=== PATIENT | female | born 1995 | race Caucasian/White ===

== ENCOUNTER 2023-09-06 12:41 | Outpatient (CLI) | payer OTHER, SELFPAY ==
--- NOTE | 2023-09-06 13:00 | US_ITS ---
Patient: MARLA JOHNSON Facility:?[facility] Patient ID:?[id number] Site Patient ID:?[id number]. Site :?1993 Study:?US-OB Pelvis TV OB<14wks-09/06/2023 1:45:25 PM Ordering Physician:?Lavinia Soto Final Report: INDICATION: First trimester scan, establish dates. COMPARISON: None. TECHNIQUE: Real-time blackmon-scale imaging of the pelvis was performed. FINDINGS: Sonographic imaging demonstrates a single living intrauterine gestation. The embryo demonstrates a regular cardiac rate measuring 171 beats per minute. The embryo`s crown-rump length measurement of 2.3 cm corresponds to a gestational age of 9 weeks 0 days with a sonographic due date of 04/10/2024. There is a normal-appearing yolk sac. There are no gross abnormalities noted within the embryo at this early state of development. The gestational sac has a normal appearance. There is no evidence of a perigestational hemorrhage. The amount of fluid within the sac appears appropriate for gestational age. The cervix is closed. The myometrium appears normal. The ovaries are of normal size. Corpus luteal cyst right ovary measuring 1.7 cm. There are no suspicious fluid collections noted in the cul-de-sac. IMPRESSION: Normal first trimester OB ultrasound exam. Gestational age calculated at 9 weeks 0 days with a sonographic due date of 04/10/2024. Dictated by Bennie Armstrong MD @ 09/07/2023 8:48:36 AM Signed by:?Bennie Armstrong MD @09/07/2023 8:48:36 AM (Electronic Signature)
== END 2023-09-06 12:42 | disposition home or self-care (01) ==
LOC: US 12:43
PROVIDERS: Visit Provider Registered Nurse
DX: Z34.91 Encounter for supervision of normal pregnancy, unspecified, first trimester (principal); Z3A.09 9 weeks gestation of pregnancy
CPT/HCPCS: 76817; 86592; 86703; 86704; 86706; 86762; 86787; 86803; 86850; 86900; 86901; 87086; 87340; 87491; 87591

== ENCOUNTER 2023-11-28 09:07 | Outpatient (CLI) | payer BC, SELFPAY ==
--- OUTSIDE RECORDS SUMMARY | 2023-11-28 09:10 | XMS_ITS | Clinical Summary ---
Author Organization [facility] Address [place], [place] [address] Care Team Providers Care Apparel Embroidery Digitizer Name Role Phone Ashanti Nieves MD Primary Care Provider Allergies No known active allergies Medications Medication Sig Dispensed Refills Start Date End Date Status cholecalciferol (VITAMIN D3) 2,000 unit capsuleIndications:[place] pervision of low-risk , third trimester Take 2 Capsules (4,000 units) by mouth once daily. 100 Capsule 11/25/2020 Active vit 28/iron fum/folic (multivitamin folic acid 1 mg)Indications:Screen ing for cardiovascular, respiratory, and genitourinary diseases Take 1 Tablet by mouth once daily. 90 Tablet 3 05/26/2023 Active Hospital, Clinic, or Other Facility Administered Medication Ordered Dose Route Frequency Start Date End Date Status levonorgestrel intrauterine device (MIRENA) 1 DeviceIndications:Evaluation regarding contraception options 1 Device IU Q 5 YEARS 02/05/2021 Active Active Problems Problem Noted Date Diagnosed Date Pap smear for cervical cancer screening 05/05/20 23 Overview: 05/2023 NIL/HPV negative Pap/HPV due in 5 years Supervision of low-risk , third trimest er 10/14/2020 Rubella non-immune status 04/05/2013 Overview: Needs MMR in hospital after delivery. Resolved Problems Problem Noted Date Diagnosed Date Resolved Date Spontaneous vaginal delivery 10/20/2013 04/22/2020 UTI in 04/05/2013 08/23/2013 Overview: On initial labs, need urine culture next visit after antibiotics. Supervision of normal first 04/05/2013 04/22/2020 Overview: FOB involved Having optional screening, first trimester screen normal. AFP normal. Normal screening ultrasound. Its a boy. Wants circumcision. Procedure discussed with patient. 09/06/2013 Tdap 08/09/13 Influenza 04/09/13 Group B strep negative examination or test 04/02/2013 04/05/2013 Immunizations Name Administration Dates Next Due Hepatitis A (Peds) 11/15/2007,04/25/2007 Human Papilloma Virus Vaccine 11/15/2007, 008,04/25/2007 Influenza A (H1N1), Inactivated 06/27/2009 Influenza, IIV3 (Age 6-35 mos) 04/25/2007 Influenza, IIV3 (Age >=3 years) 04/09/2013 MMR 10/21/2013 Meningococcal Vaccine 04/25/2007 Meningococcal Vaccine (Menactra) 04/25/2007 Td, Preservative Free (age >= 7 Years) 12/16/ 6 Tdap 09/02/2020,08/09/2013 Family History Medical History Relation Name Comments Cancer Maternal Grandmother from [place] Relation Name Status Comments Maternal Grandmother Social History Tobacco Use Types Packs/Day Years Used Date Smoking Tobacco: Never Smokeless Tobacco: Never Comments:mother quit on 03/05 Alcohol Use Standard Drinks/Week Comments No 0 (1 standard drink = 0.6 oz pur e alcohol) Social Connections Answer Date Recorded Frequency of Communication with Friends and Fami ly Not on file 06/05/2021 Financial Resource Strain Answer Date R ecorded Difficulty of Paying Living Expenses Not on file 06/05/2021 Difficulty of Paying Living Expenses Not on file 06/05/2021 Sex and Gender Information Value Date Recorded Sex Assigned at Not on file Gender Identity Not on file Sexual Orientation Not on file Obstetrics History Para Term AB IAB SAB Ectopic Multiple Livin g Live Births 2 2 2 0 2 2 Date Outcome GA Total Labor Labor/2nd/3rd Weight Sex Type Anes PTL Chelsea A1 A5 Name Clin 2013 Term 39w 2d 3.5 kg (7 lb 11.4 oz) M Vag Livin g 9 9 JANES NUÑEZ Delivery Location:[facility] 2020 Term 40w 1d 12h 17m 9h 37m/2h 31m/0h 09m 3.91 kg (8 lb 10 oz) F Vag-S pont Epidur al Livin g 9 9 CAMILO MAJANO Travi s [place], MD Complications:None Delivery Location:Hospital ( [facility]) Last Filed Vital Signs Vital Sign Reading Time Taken Comments Blood Pressure 112/72 05/26/2023 8:35 AM BAR MANAGER Pulse 80 05/26/2023 8:35 AM BAR MANAGER Temperature 37 ??C (98.6 ??F) 11/25/2020 8:42 AM CDT Respiratory Rate 18 11/25/2020 8:42 AM CDT Oxygen Saturation 99% 11/24/2020 10:15 PM CDT Inhaled Oxygen Concentration - - Weight 109.3 kg (241 lb) 02/05/2021 10:57 AM CDT Height 175.3 cm (5' 9) 11/24/2020 6:09 AM CDT Body Mass Index 35.59 11/24/2020 6:09 AM CDT Plan of Treatment Health Maintenance Due Date Last Done Comments Hepatitis C screening for ag e 18-79 2011 BMI (ht and wt on same day) for age 18+ 11/17/2019 11/16/2018 Depression screening for age 12+ 11/17/2019 11/16/2018 COVID-19 vaccine series ( season) 2023 Influenza for age 9-49 02/04/2024 3, 06/27/2009 Pap test for age 21-65 05/26/2028 3, 05/26/2023, 11/16/2018 Tetanus booster 09/02/2030 09/02/2020, 08/09/2013, 12/16/2005 HIV for age 15-65 Completed 03/18/2020, 04/04/2013 Tdap Completed 09/02/2020, 08/09/2013 Pneumococcal series for age 6-64 Aged Out No longer eligible b ased on patient's age to complete this topic Procedures Procedure Name Priority Date/Time Associated Diagnosis Comments CREDIT INVESTIGATOR THIN PREP PAP SCREEN IMAGED Routine 05/26/2023 8:45 AM BAR MANAGER Cervical cancer screening ANTI HIV 1/2 Routine 03/18/2020 4:06 PM CDT Supervision of low-risk first , first trimester from Last 3 Months or Most Recently Relevant to Health Maintenance Results * CREDIT INVESTIGATOR THIN PREP PAP SCREEN IMAGED (05/26/2023 8:45 AM BAR MANAGER) Pathologist [facility] Case Report Gynecologic Cytology Report ? Case: [id number] ? Authorizing Provider: ??Giovany Lazo MD Collected: ? 05/26/2023 0845 ? Ordering Location: ? [facility] ? Received: ?05/26/2023 0919 ? Clinic ? First Screen: ?Baccam, Minie ? Specimen: ?CREDIT INVESTIGATOR ThinPrep Vial Screening, Cervical ? 06/07/2023 3:13 PM BAR MANAGER [facility] INTERPRETATION/ RESULT NEGATIVE FOR INTRAEPITHELIAL LESION OR MALIGNANCY (NIL) (none) 06/07/2023 3:13 PM BAR MANAGER [facility] IMEN ADEQUACY Satisfactory for evaluation No endocervical component seen 06/07/2023 3:13 PM BAR MANAGER [facility] HPV REQUEST HPV and PAP 06/07/2023 3:13 PM BAR MANAGER [facility] Date of LMP 05/12/2023 06/07/2023 3:13 PM BAR MANAGER [facility] Last Pap Date 11/16/18 06/07/2023 3:13 PM BAR MANAGER [facility] Last Pap Result NIL 3:13 PM BAR MANAGER [facility] Abnormal Pap or [place] Bx in last 5 years No 06/07/2023 3:13 PM BAR MANAGER [facility] Menstrual Status Regular Periods 06/07/2023 3:13 PM BAR MANAGER [facility] [place] Bx Done Today No 06/07/2023 3:13 PM BAR MANAGER [facility] Additional Information None given 06/07/2023 3:13 PM BAR MANAGER [facility] Comment: Cytology is screened at [facility] - [address], [place] [address] and [facility] - [address] [place] [address] and [facility] - [address] [place] [address] Interpreted at [facility] - [address], [place] [address] Automated Review Successful 06/07/2023 3:13 PM BAR MANAGER [facility] Comment:Specimen processed s uccessfully by automated study manager device, ThinPrep Imaging System, [employer] ANCILLARY TESTING CREDIT INVESTIGATOR HPV Ordered, Please see separate report 06/07/2023 3:13 PM BAR MANAGER [facility] Note The pap test is a screening technique, not a diagnostic procedure. It is used primarily to screen for squamous cancers and precursor lesions. Published studies have shown that it is subject to both false negative and false positive results. The pap test should not be used as the sole means to diagnose or exclude pre-malignant and malignant lesions. 06/07/2023 3:13 PM BAR MANAGER [facility] Other (Cervical) Non-Blood / Unknown 05/26/2023 8:45 AM BAR MANAGER 05/26/2023 9:19 AM BAR MANAGER Giovany Lazo MD PATHOLOGY/CYTOL OGY [facility] [address] [place] [address], * ANTI HIV 1/2 (03/18/2020 4:06 PM CDT) HIV-1/HIV-2 ANTIBODY Non-Reacti ve Non-Reacti ve 03/19/2020 4:15 PM CDT [facility] Comment:HIV-1 p24 and HIV-1/ HIV-2 Ab not detected. Blood BLOOD SPECIMEN / Unknown Venipuncture / Unknown 03/18/2020 4:06 PM CDT 03/18/2020 4:06 PM CDT Giovany Lazo MD SEND OUTS [facility] [address] [place] [address], from Last 3 Months or Most Recently Relevant to Health Maintenance Advance Directives * Full Code (Latest Code Status on File) Date Activated Date Inactivated Comments 11/24/2020 1:46 PM 11/25/2020 6:15 PM Question Answer Comments Code Status Discussion: Not Discussed * Full Code Date Activated Date Inactivated Comments 10/19/2013 7:14 PM 10/20/2013 3:46 AM * Full Code Date Activated Date Inactivated Comments 10/19/2013 3:25 PM 10/19/2013 7:14 PM Care Teams Apparel Embroidery Digitizer Relationship Specialty Start Date End Date Ashanti Nieves MD [address] [place] [address] PCP - General Family Practice 11/25/13
--- NOTE | 2023-11-28 09:15 | CRLHL7_ITS ---
For Patients: As a result of the Century Cures Act, medical imaging exams and procedure reports are released immediately into your electronic medical record. You may view this report before your referring provider. If you have questions, please contact your health care provider. OBSTETRICAL ULTRASOUND ??? ANATOMY SURVEY, 11/28/2023 INDICATION: Encounter for supervision of normal . SHANICE by LMP: 04/11/2024 GESTATIONAL AGE: 20 weeks 5 days TECHNIQUE: Transabdominal pelvic ultrasound. COMPARISON: 09/06/2023 FINDINGS: position: Breech Cervix: Visualized Length of closed cervix: 3.7 cm Placenta position: Anterior Placenta tip to internal os: 3.3 cm Umbilical cord: 3-vessel cord Placental insertion: Central Amniotic fluid: 4.9 cm SDP ANATOMY SURVEY: Observed Structures Cerebellum: 2.3 cm, 22 weeks 4 days Cisterna magna: 5.7 mm Nuchal fold: 5.4 mm Lateral ventricle: 6.4 mm CSP Midline falx Choroid plexus Spine Stomach Abdominal cord insert Urinary bladder Kidneys Diaphragm Nose/lips Orbital view Profile Upper extremities Lower extremities Hands Feet 4-chamber heart LVOT RVOT 3VV 3VTV Biometry: BPD: 4.8 cm, 20 weeks 4 days, 43% HC: 18.4 cm, 20 weeks 5 days, 42% AC: 16.0 cm, 21 weeks 1 day, 55% FL: 3.4 cm, 20 weeks 6 days, 43% FL/AC: 21.49% HC/AC ratio: 1.15 heart rate: 144 bpm age by this ultrasound: 21 weeks 1 day SHANICE by this ultrasound: 04/08/2024 Estimated weight: 385 grams (0 pounds 14 ounces) Percentile by SHANICE: 56% IMPRESSION: 1) Measurements are consistent with dates. Good interval growth since the prior exam. 2) Normal anatomic survey. NAMITA BOLANOS M.D. Body/Diagnostic Radiologist [email or web address] Transcribed: 11:[address]/Dictated by: Namita Bolanos MD @ 11/29/2023 9:01:00 AM (Electronically Signed)
== END 2023-11-28 09:08 | disposition home or self-care (01) ==
LOC: US 09:09
PROVIDERS: Visit Provider Obstetrics & Gynecology
DX: Z34.92 Encounter for supervision of normal pregnancy, unspecified, second trimester (principal); Z3A.20 20 weeks gestation of pregnancy
CPT/HCPCS: 76805

== ENCOUNTER 2024-01-23 14:34 | Outpatient (CLI) | payer BC, SELFPAY ==
--- OUTSIDE RECORDS SUMMARY | 2024-01-26 07:21 | XMS_ITS | Clinical Summary ---
Author Organization [facility] Address [place], [place] [address] Care Team Providers Care Manager Cafe Name Role Phone Ashanti Nieves MD Primary [...] s Wayne, MD Complications:None Delivery Location:Hospital ( [facility]) Last Filed Vital Signs Vital Sign Reading Time Taken Comments Blood Pressure 112/72 05/26/2023 8:35 AM SEED TRUCKER Pulse 80 05/26/2023 8:35 AM SEED TRUCKER Temperature 37 ??C (98.6 ??F) 11/25/2020 8:42 [...] Procedure Name Priority Date/Time Associated Diagnosis Comments OWNER/PHOTOGRAPHER THIN PREP PAP SCREEN IMAGED Routine 05/26/2023 8:45 AM SEED TRUCKER Cervical cancer screening ANTI HIV 1/2 Routine 03/18/2020 4:06 PM CDT Supervision of low-risk first , first trimester from Last 3 Months or Most Recently Relevant to Health Maintenance Results * OWNER/PHOTOGRAPHER THIN PREP PAP SCREEN IMAGED (05/26/2023 8:45 AM SEED TRUCKER) Pathologist [facility] Case Report Gynecologic Cytology Report ? Case: [id number] ? Authorizing Provider: ??Giovany Lazo MD Collected: ? 05/26/2023 0845 ? Ordering Location: ? [facility] ? Received: ?05/26/2023 0919 ? Clinic ? First Screen: ?Baccam, Minie ? Specimen: ?OWNER/PHOTOGRAPHER ThinPrep Vial Screening, Cervical ? 06/07/2023 3:13 PM SEED TRUCKER [facility] INTERPRETATION/ RESULT NEGATIVE FOR INTRAEPITHELIAL LESION OR MALIGNANCY (NIL) (none) 06/07/2023 3:13 PM SEED TRUCKER [facility] IMEN ADEQUACY Satisfactory for evaluation No endocervical component seen 06/07/2023 3:13 PM SEED TRUCKER [facility] HPV REQUEST HPV and PAP 06/07/2023 3:13 PM SEED TRUCKER [facility] Date of LMP 05/12/2023 06/07/2023 3:13 PM SEED TRUCKER [facility] Last Pap Date 11/16/18 06/07/2023 3:13 PM SEED TRUCKER [facility] Last Pap Result NIL 3:13 PM SEED TRUCKER [facility] Abnormal Pap or [place] Bx in last 5 years No 06/07/2023 3:13 PM SEED TRUCKER [facility] Menstrual Status Regular Periods 06/07/2023 3:13 PM SEED TRUCKER [facility] [place] Bx Done Today No 06/07/2023 3:13 PM SEED TRUCKER [facility] Additional Information None given 06/07/2023 3:13 PM SEED TRUCKER [facility] Comment: Cytology is screened at [facility] - [address], [place] [address] and [facility] - [address] [place] [address] and [facility] - [address] [place] [address] Interpreted at [facility] - [address], [place] [address] Automated Review Successful 06/07/2023 3:13 PM SEED TRUCKER [facility] Comment:Specimen processed s uccessfully by automated customer development manager device, ThinPrep Imaging System, [employer] ANCILLARY TESTING OWNER/PHOTOGRAPHER HPV Ordered, Please see separate report 06/07/2023 3:13 PM SEED TRUCKER [facility] Note The [...] pre-malignant and malignant lesions. 06/07/2023 3:13 PM SEED TRUCKER [facility] Other (Cervical) Non-Blood / Unknown 05/26/2023 8:45 AM SEED TRUCKER 05/26/2023 9:19 AM SEED TRUCKER Giovany Lazo MD PATHOLOGY/CYTOL OGY [facility] [address] [place] [address], * ANTI HIV 1/2 (03/18/2020 4:06 PM CDT) HIV-1/HIV-2 ANTIBODY Non-Reacti ve Non-Reacti ve 03/19/2020 4:15 PM CDT [facility] Comment:HIV-1 p24 and HIV-1/ HIV-2 Ab not detected. Blood BLOOD SPECIMEN / Unknown Venipuncture / Unknown 03/18/2020 4:06 PM CDT 03/18/2020 4:06 PM CDT Giovany Lazo MD SEND OUTS [facility] [address] [place] [address], from Last 3 Months or Most Recently [...] 3:25 PM 10/19/2013 7:14 PM Care Teams Manager Cafe Relationship Specialty Start Date End Date Ashanti Nieves MD [address] [place] [address] PCP - General Family Practice 11/25/13
== END 2024-01-23 14:35 | disposition home or self-care (01) ==
LOC: NFLDREF 01-26 07:18
PROVIDERS: Visit Provider Obstetrics & Gynecology
DX: Z34.93 Encounter for supervision of normal pregnancy, unspecified, third trimester (principal); Z3A.28 28 weeks gestation of pregnancy
CPT/HCPCS: 86592

== ENCOUNTER 2024-03-14 15:05 | Outpatient (CLI) | payer BC, SELFPAY | END 2024-03-14 15:06 | disposition home or self-care (01) | LOC: NFLDREF 03-15 13:29 | PROVIDERS: Visit Provider Obstetrics & Gynecology | DX: Z34.93 Encounter for supervision of normal pregnancy, unspecified, third trimester (principal); Z3A.36 36 weeks gestation of pregnancy | CPT/HCPCS: 87081; 87653 ==

== ENCOUNTER 2024-03-21 13:44 | Outpatient (CLI) | payer BC, SELFPAY ==
--- NOTE | 2024-03-21 14:00 | CRLHL7_ITS ---
For Patients: As a result of the Century Cures Act, medical imaging exams and procedure reports are released immediately into your electronic medical record. You may view this report before your referring provider. If you have questions, please contact your health care provider. INDICATION: Obesity TECHNIQUE: Real time blackmon scale imaging of the fetus was performed. COMPARISON: 11/28/2023 FINDINGS: Sonographic imaging demonstrates a single living intrauterine gestation. Fetus demonstrates a regular cardiac rate of 165 beats per minute. Fetus has a vertex position. The placenta lies right anterior. Amniotic fluid volume appears normal and there is a single deepest pocket of 5.3 cm. The estimated weight is 2998gm which lies at the 47th %. On the prior OB ultrasound dated 11/28/2023 the estimated weight was at the 56th percentile. BPD 57th percentile. HC 46th percentile. AC 46th percentile. FL 40th percentile. The fetus was active and demonstrated normal breathing movements. There was normal flexion and extension of the trunk and extremities. IMPRESSION: Normal biophysical profile score 8/8. Sonographic gestational age 37 weeks 0 days and a sonographic due date of 04/11/2024. Good correlation with dates. Normal interval growth. Estimated weight is 47th percentile. Abdominal circumference 46th percentile. Dictated by Bennie Armstrong MD @ 03/25/2024 4:14:39 PM (Electronically Signed)
== END 2024-03-21 13:45 | disposition home or self-care (01) ==
LOC: US 13:44
PROVIDERS: Visit Provider Obstetrics & Gynecology
DX: O99.213 Obesity complicating pregnancy, third trimester (principal); Z3A.37 37 weeks gestation of pregnancy
CPT/HCPCS: 76816; 76819

== ENCOUNTER 2024-03-28 14:57 | Outpatient (CLI) | payer BC, SELFPAY ==
[2024-03-28] VITALS (10 sets, daily range): BP systolic 126–136; BP diastolic 60–80; PULSE 79–96; RESP 16; TEMP 36.4; O2SAT 97–98
--- OUTSIDE RECORDS SUMMARY | 2024-03-28 14:59 | XMS_ITS | Clinical Summary ---
Author Organization [facility] Address [place], [place] [address] Care Team Providers Care Sap Hana Architect Name Role Phone Ashanti Nieves MD Primary [...] smear for cervical cancer screening 05/05/20 23 Overview (06/08/2023): 05/2023 NIL/HPV negative Pap/HPV due in 5 years Supervision of low-risk , third trimest er 10/14/2020 Rubella non-immune status 04/05/2013 Overview (04/05/2013): Needs MMR in hospital after delivery. Resolved Problems Problem Noted Date Diagnosed Date Resolved Date Spontaneous vaginal delivery 10/20/2013 04/22/2020 UTI in 04/05/2013 08/23/2013 Overview (04/05/2013): On initial labs, need urine culture next visit after antibiotics. Supervision of normal first 04/05/2013 04/22/2020 Overview (10/11/2013): FOB involved Having optional screening, first trimester [...] Td, Preservative Free (age >= 7 Years) 6 Tdap 09/02/2020,08/09/2013 Family History Medical History [...] oz) M Vag Livin g 9 9 JOAQUIN JANES Delivery Location:[facility] 2020 Term 40w 1d 12h 17m 9h 37m/2h 31m/0h 09m 3.91 kg (8 lb 10 oz) F Vag-S pont Epidur al Livin g 9 9 CAMILO MAJANO Travi s Wayne, MD Complications:None Delivery Location:Hospital ( [facility]) Last Filed Vital Signs Vital Sign Reading Time Taken Comments Blood Pressure 112/72 05/26/2023 8:35 AM MANAGER IMAGE Pulse 80 05/26/2023 8:35 AM MANAGER IMAGE Temperature 37 ??C (98.6 ??F) 11/25/2020 8:42 [...] 11/17/2019 11/16/2018 COVID-19 vaccine series ( season) 2024 Influenza for age 9-49 02/04/2024 3, 06/27/2009 Pap test for age 21-65 05/26/2028 , 05/26/2023, 11/16/2018 Tetanus booster 09/02/2030 09/02/2020, 08/09/2013, 12/16/2005 HIV for age 15-65 Completed 03/18/2020, 04/04/2013 Tdap Completed 09/02/2020, 08/09/2013 Pneumococcal series for age 6-64 Aged Out No longer eligible b ased on patient's age to complete this topic Procedures Procedure Name Priority Date/Time Associated Diagnosis Comments CLINICAL TRIAL EDUCATOR THIN PREP PAP SCREEN IMAGED Routine 05/26/2023 8:45 AM MANAGER IMAGE Cervical cancer screening ANTI HIV 1/2 Routine 03/18/2020 4:06 PM CDT Supervision of low-risk first , first trimester from Last 3 Months or Most Recently Relevant to Health Maintenance Results * CLINICAL TRIAL EDUCATOR THIN PREP PAP SCREEN IMAGED (05/26/2023 8:45 AM MANAGER IMAGE) Case Report Gynecologic Cytology Report ? Case: [id number] ? Authorizing Provider: ??Giovany Lazo MD Collected: ? 05/26/2023 0845 ? [facility] ? Received: ?05/26/2023 0919 ? Clinic ? First Screen: ?Baccam, Minie ? Specimen: ?CLINICAL TRIAL EDUCATOR ThinPrep Vial Screening, Cervical ? 06/07/2023 3:13 PM MANAGER IMAGE [facility] INTERPRETATION/ RESULT NEGATIVE FOR INTRAEPITHELIAL LESION OR MALIGNANCY (NIL) (none) 06/07/2023 3:13 PM MANAGER IMAGE [facility] IMEN ADEQUACY Satisfactory for evaluation No endocervical component seen 06/07/2023 3:13 PM MANAGER IMAGE [facility] HPV REQUEST HPV and PAP 06/07/2023 3:13 PM MANAGER IMAGE [facility] Date of LMP 05/12/2023 06/07/2023 3:13 PM MANAGER IMAGE [facility] Last Pap Date 11/16/18 06/07/2023 3:13 PM MANAGER IMAGE [facility] Last Pap Result NIL 3:13 PM MANAGER IMAGE [facility] Abnormal Pap or [place] Bx in last 5 years No 06/07/2023 3:13 PM MANAGER IMAGE [facility] Menstrual Status Regular Periods 06/07/2023 3:13 PM MANAGER IMAGE [facility] [place] Bx Done Today No 06/07/2023 3:13 PM MANAGER IMAGE [facility] Additional Information None given 06/07/2023 3:13 PM MANAGER IMAGE [facility] Comment: Cytology is screened at [facility] - [address], [place] [address] and [facility] - [address], [place] [address] and [facility] - [address] [place] [address] Interpreted at [facility] - [address], [place] [address] Automated Review Successful 06/07/2023 3:13 PM MANAGER IMAGE [facility] Comment:Specimen processed s uccessfully by automated scoring machine operator device, ThinPrep Imaging System, [employer] ANCILLARY TESTING CLINICAL TRIAL EDUCATOR HPV Ordered, Please see separate report 06/07/2023 3:13 PM MANAGER IMAGE [facility] [employer] [facility] Note The pap test [...] pre-malignant and malignant lesions. 06/07/2023 3:13 PM MANAGER IMAGE [facility] [employer] [facility] Other (Cervical) Non-Blood / Unknown 05/26/2023 8:45 AM MANAGER IMAGE 05/26/2023 9:19 AM MANAGER IMAGE Giovany Lazo MD PATHOLOGY/CYTOL OGY [facility] [address] [place] [address], [place] * ANTI HIV 1/2 (03/18/2020 4:06 PM CDT) HIV-1/HIV-2 ANTIBODY Non-Reacti ve Non-Reacti ve 03/19/2020 4:15 PM CDT [facility] [employer] [facility] Comment:HIV-1 p24 and HIV-1/ HIV-2 Ab not detected. Blood BLOOD SPECIMEN / Unknown Venipuncture / Unknown 03/18/2020 4:06 PM CDT 03/18/2020 4:06 PM CDT Giovany Lazo MD SEND OUTS [facility] [address] [place] [address], [place] from Last 3 Months or Most Recently [...] 3:25 PM 10/19/2013 7:14 PM Care Teams Sap Hana Architect Relationship Specialty Start Date End Date Ashanti Nieves MD [address] [place] [address] PCP - General Family Practice 11/25/13
[2024-03-28 17:14] LABS: Hematocrit 38.2 % (33.0-51.0); Hemoglobin* 12.6 gm/dL (12.0-16.0); Mean Corpuscular HGB Conc 33 gm/dL (32-36); Mean Corpuscular Hemoglobin 29 pg (26-34); Mean Corpuscular Volume 88 fL (80-100); Platelet Count* 271 K/uL (140-440); Red Blood Count 4.34 m/uL (4.00-5.20); White Blood Count* 9.04 K/uL (4.50-11.00)
[2024-03-28 17:55] LABS: Alanine Aminotransferase* 11 U/L (4-35); Aspartate Amino Transferase* 19 U/L (12-35); Blood Urea Nitrogen* 8 mg/dL (5-24); Creatinine* 0.5 mg/dL (0.5-1.5); Estimated Glomerular Filt Rate 129 ml/min
[2024-03-28 18:22] LABS: Slide Review Reflex No
--- NOTE | 2024-03-28 18:36 | PC.OBNST ---
NST Note NST Note Start: 03/28/24 14:59 Freq: ONCE Status: Active Protocol: Document 03/28/24 18:34 JOSEFA (Rec: 03/28/24 18:36 JOSEFA Desktop) NST Note 5 Para (# of births) 2 EDC 04/11/24 Gestational Age In Weeks & Days 38 Weeks & 0 Days Patient Presented with Complaint(s) of Other Other Complaints Pt. was seen in clinic and had a BP of 146/84, Pt. has never had an elevated BP. Pt. sent to Center for serial BP' s and EFM. Reactive Yes Appropriate for Gestational Age Yes BLANCA [place] Date 03/28/24 Reactive Yes Appropriate for Gestational Age Yes BLANCA Cameron RN Date 03/28/24 OB NST charge Yes Complete NST Note via Write Note Yes The provider's electronic signature indicates the NST is reactive/appropriate for gestational age. *Note to provider: If an addendum is required, open the patient's chart and click on the note under the Nurse/Allied Health tab.
[2024-03-28 19:16] LABS: Total Protein Urine 6 mg/dL
[2024-03-28 19:17] LABS: Creatinine Urine 94.3 mg/dL; Protein Creatinine Ratio Urine 0.06 (0-0.19)
== END 2024-03-28 18:30 | disposition home or self-care (01) ==
LOC: OB OUT 14:58 → OB 14:59
PROVIDERS: Visit Provider Obstetrics & Gynecology
DX: Z34.93 Encounter for supervision of normal pregnancy, unspecified, third trimester (principal); Z3A.38 38 weeks gestation of pregnancy
CPT/HCPCS: 36415; 59025; 76819; 82565; 82570; 84156; 84450; 84460; 84520; 85027; G0463

== ENCOUNTER 2024-04-03 07:53 | Inpatient (IN) | payer BC, MEDICAID, SELFPAY ==
[2024-04-03] VITALS (55 sets, daily range): BP systolic 64–142; BP diastolic 32–86; PULSE 61–131; RESP 16–18; TEMP 36.4–37.3; O2SAT 81–99; BMI 41.4
[2024-04-03] MEDS: ACETAMINOPHEN 500 MG TABLET 1000 MG PO (08:00)
[2024-04-03 08:30] LABS: Hematocrit 37.2 % (33.0-51.0); Hemoglobin* 12.1 gm/dL (12.0-16.0); Mean Corpuscular HGB Conc 33 gm/dL (32-36); Mean Corpuscular Hemoglobin 29 pg (26-34); Mean Corpuscular Volume 89 fL (80-100); Platelet Count* 236 K/uL (140-440); White Blood Count* 8.22 K/uL (4.50-11.00)
[2024-04-03 08:32] LABS: Slide Review Reflex No
[2024-04-03 08:48] LABS: Aspartate Amino Transferase* 16 U/L (12-35); Blood Urea Nitrogen* 7 mg/dL (5-24); Creatinine* 0.5 mg/dL (0.5-1.5); Est. Creatinine Clearance* 170.37; Estimated Glomerular Filt Rate 129 ml/min
[2024-04-03 08:56] LABS: Alanine Aminotransferase* 11 U/L (4-35)
--- NOTE | 2024-04-03 09:06 | P.LDBA_ITS ---
Subjective History of Present Illness Narrative: Patient is being admitted to Labor and Delivery for IOL due to diagnosis of GHTN made today. She is a 29 year old at 38 6/7 weeks gestation. Her full history and physical was dictated by Dr. Cole on 03/21/24. Please see this for details. Patient had one elevated BP in clinic last week, she was sent to L&D for further monitoring and BPs where normal, since this had been the first elevated BP in she was sent home with instructions to start monitoring BPs and instructions to come back if elevated BPs noted at home. Monitoring so far had been normal including a clinic visit yesterday. Today patient called unit with concerns of elevated BP reading at home and she was asked to come in for evaluation. Today patient with mild range high blood pressure meeting criteria for GHTN and recommendation was given to start IOL today. Did complain of a headache this morning she took ibuprofen at home, otherwise no other CLEARANCE REPRESENTATIVE irritability symptoms. Specific Issues/Plans 1. Elevated BMI: BMI 36.2 - HgbA1c 5.1 - Consider weekly BPPs/NSTs at 37 weeks. Scheduling form completed 02/21/24 Rubella non immune. Recommend PP vaccine. Hep B non immune. Is not high risk. Will consider PP vaccine. US on 03/21/24 at 37 weeks: EFW 47%tile, AC 46%tile. SDP 5.3 cm. Covid: Recommended, declines. TDAP: 02/06/24 RSV: 02/20/24 GBS: 03/14/2024 H&P: Dr. Cole on 03/21/24 OB - Problem Based A/P Additional Plan (1) Gestational hypertension: Status: Acute Plan 1. Start IOL, will offer vaginal Cytotec and plan to evaluate cervix after at least 2 doses to evaluate if we could start Oxytocin. 2. Continuous monitoring. 3. HELLP labs, if normal will not repeat unless CLEARANCE REPRESENTATIVE irritability sx or severely elevated BPs. 4. Candidate for analgesia of choice. OB Exam Physical Exam Vital signs: Temp Pulse Resp BP Pulse Ox 97.5 F L 82 18 136/72 97 04/03/24 07:05 04/03/24 09:05 04/03/24 07:05 04/03/24 09:05 04/03/24 07:02 Detailed Labor and Delivery Exam Patient Gravid: Yes Comments: Patient checked in clinic yesterday and cervix unfavorable, no uterine contraction changes, will defer cervical exam right now. Fetus (Single) Amniotic Membrane Status: intact Heart Rate Baseline: 130 Monitor Accelerations: Present Monitor Decelerations: None Half-Way Variability: Moderate (6-25)
[2024-04-03] MEDS: miSOPROStoL 25 MCG/0.25 TABLET VAGINAL ×2 (09:29→12:36)
[2024-04-03 10:00] LABS: Total Protein Urine 10 mg/dL
[2024-04-03 10:01] LABS: Creatinine Urine 57.4 mg/dL; Protein Creatinine Ratio Urine 0.17 (0-0.19)
[2024-04-03] MEDS: AMPICILLIN 2 GM in 0.9 % SODIUM CHLORIDE Mini-bag 100 ML IVPB (15:43)
[2024-04-03] MEDS: LACTATED RINGERS 1000 ML 1,000 ML 125 ML IV (15:45)
[2024-04-03] MEDS: AMPICILLIN 1 GM in 0.9 % SODIUM CHLORIDE Mini-bag 100 ML IVPB (19:43)
[2024-04-03] MEDS: OXYTOCIN 30 unit/500 ML in NS 30 UNIT/500 ML BAG IVPB (20:33)
[2024-04-03] MEDS: BUPIVACAINE 0.25% PF 10 ML 10 ML ML EPIDURAL (21:10)
[2024-04-03] MEDS: ROPIVACAINE 0.2% 100 ml 100 ML 12 MG EPIDURAL (21:14)
--- NOTE | 2024-04-03 21:22 | P.ANBPRC_ITS ---
[facility] Social History What is your current living situation?: I presently have a place to live Problems where you live: no known problems In the past 12 months, utilities in danger of being shut off: declined to answer In past 12 months, lack of transportation kept you from medical appts, meetings, work, or getting things needed for daily living: no In the past 12 mos, have been you worried that your food would run out before you had money to buy more?: never true In the past 12 mos, the food you bought just didn't last and you didn't have money to buy more?: never true Smoking Status: Never smoker How often does anyone, including family, friends and others, physically hurt you : never How often does anyone, including family, friends and others, insult or talk down to you: never How often does anyone, including family, friends and others, threaten you with harm: never How often does anyone, including family, friends and others, scream or curse at you: never Little interest or pleasure in doing things: not at all Feeling down, depressed, or hopeless: not at all Meds Home Medications and Allergies Home Medications ?Medication ?Instructions ?Recorded ?Confirmed ?Type docosahexaenoic acid 200 mg 200 mg PO DAILY 09/06/23 04/03/24 History capsule ( DHA) Allergies Allergy/AdvReac Type Severity Reaction Status Date / Time No Known Drug Allergies Allergy Verified 04/02/24 13:07 Results Labs Labs: Laboratory Results - last 24 hr 04/03/24 04/03/24 08:14 09:32 WBC 8.22 RBC 4.20 Hgb 12.1 Hct 37.2 MCV 89 MCH 29 MCHC 33 Plt Count 236 BUN 7 Creatinine 0.5 Estimated Creat Clear 170.37 Estimated GFR 129 AST 16 ALT 11 Urine Creatinine 57.4 Protein/Creatinin Ratio 0.17 Urine Total Protein 10 Blood Type O Positive Antibody Screen NEGATIVE Vital Signs Vital Signs: Last Vital Signs Temp 98.6 F 04/03/24 20:02 Pulse 90 04/03/24 21:19 Resp 16 04/03/24 20:02 BP 127/68 04/03/24 21:19 Pulse Ox 97 04/03/24 20:55 Weight: 127.233 kg Height: 175.26 cm Anesthesia Procedures Epidural Insertion Patient Location: OB Start Time: 20:30 Stop Time: 21:10 Start Date: 04/03/24 Stop Date: 04/03/24 Reason for Block: procedure for pain Patient Position: sitting Performed By: Bentley Maldonado Preanesthetic Checklist: IV checked, risks and benefits discussed, monitors and equipment checked, pre-op evaluation, timeout performed and anesthesia consent Prep: chlorhexidine gluconate Monitoring: blood pressure monitoring, continuous pulse oximetry and heart rate Approach: midline Vertebral Space: lumbar (1-5) Epidural Technique: SHAHEED saline Needle Type: Tuohy needle Injection Technique: continuous catheter Needle gauge: 17 Needle Length (cm): 10 cm Needle Insertion Depth (cm): 9 Catheter Gauge: 19 Catheter Type: multi-orifice Catheter at skin depth (cm): 15 Test Dose Result: negative and lidocaine 1.5% with epinephrine 1 to 200,000
[2024-04-03] MEDS: PHENYLEPHRINE 100 MCG/ML SYRINGE IVP ×2 (22:01→22:09)
[2024-04-03] MEDS: LACTATED RINGERS 1000 ML 1,000 ML 1200 ML IV (22:12)
[2024-04-03] MEDS: ePHEDrine sulfate 5 MG/ML inj 10 MG IVP (22:19)
--- NOTE | 2024-04-03 23:06 | W.PM.OBVAGDE ---
OB Procedure Vag Delivery Mother Details Mother Details: The patient is a 29 year-old, 5, Para 3, admitted on 04/03/24 at 38 6/7 Days gestation for IOL due to GHTN diagnosis. : 5 Para: 2 Weeks Gestation: 38.6 Admission Date: 04/03/24 Additional Details Amniotic Membrane Status: AROM Amniotic Membrane Rupture Date: 04/03/24 Amniotic Membrane Rupture Time: 19:43 Amniotic Membrane Fluid Description: Clear Analgesia/Anesthesia Type: Epidural Waterbirth: No Pitcoin: Yes Intrapartal Events: Labor Induction Induction Method: per misoprostol protocol and per pitocin protocol Delivery augmentation: rupture of membranes Labor Onset: 19:45 Complete: 22:38 Pushin:42 Heart: heart tones during second stage were category 2. Patient's blood pressures decreased and at about 10pm NST started to exhibit variable decelerations, blood pressures treated but decelerations became more persistent even after position changes, d/c oxytocin and position changes. I was called in to evaluate and cervical check found patient an anterior rim reducible with contractions and station already +1,+2. Delivery Details Delivery Date: 04/03/24 Delivery Time: 22:50 Route of delivery: Infant Gender: Male Infant Viability: Alive; Heart Rate Present Position at Delivery: OA Delivery Details: Delivered over intact perineum via spontaneous vaginal delivery. Infant was placed on maternal abdomen.? Cord was clamped and cut after a 30-60 second delay. Nose and mouth were bulb suctioned.? weight pending. 1 Minute Interval Total Score: 8 5 Minute Interval Total Score: 9 Additional Details Shoulder Dystocia: No Placenta Delivery Time: 22:58 Placental Delivery Description: Spontaneous Procedure Done: Global Blood Loss: 50 Laceration: None Blood Loss Measurement Type: QBL Bakri Used: No Sponge/Need Count Correct: Yes Cord Vessel Description: 3 Vessels and Reduced (Nuchal cord easily reduced prior to delivery of body) Event Summary Status: Mother and were stable after delivery. Disposition: floor
[2024-04-03] MEDS: IBUPROFEN 600 MG TABLET PO (23:17)
[2024-04-04] VITALS (17 sets, daily range): BP systolic 93–119; BP diastolic 55–79; PULSE 67–96; RESP 15–18; TEMP 36.3–36.9; O2SAT 97
[2024-04-04] MEDS: DOCUSATE SODIUM 100 MG CAPSULE PO (04:28)
[2024-04-04] MEDS: ACETAMINOPHEN 500 MG TABLET 1000 MG PO ×3 (04:28→16:36)
[2024-04-04] MEDS: LANOLIN CREAM 1 APPLIC TOPICAL (04:41)
[2024-04-04 06:42] LABS: Hemoglobin* 10.3 gm/dL (12.0-16.0)
[2024-04-04] MEDS: IBUPROFEN 600 MG TABLET PO ×2 (07:40→13:45)
--- NOTE | 2024-04-04 07:44 | PM.OBPNVD1 ---
OB - PN:Subj Subjective Date Seen: 04/04/24 Narrative: Farheen is a 29 y.o. G 5 P 3 who was admitted to L & D for IOL for GHTN. ?She had a NVD that was uncomplicated. The patient feels well. ?The pain is well controlled with current medications. ?She has no new complaints. ?She is breast feeding and reports things are going well. the patient has done well.? Vitals have been stable.? She has remained afebrile.? Has a good appetite, is tolerating a general diet. ?She is voiding without difficulty.? She is not yet passing gas and has not had a bowel movement.? She is ambulating and denies any dizziness.? Has small amount of rubra lochia. Problems: none OB - PN: Obj Exam Physical Exam: Vital signs: Temp Pulse Resp BP Pulse Ox O2 Del Method 97.6 F 67 16 111/73 97 Room Air 04/04/24 04:37 04/04/24 04:37 04/04/24 04:37 04/04/24 04:37 04/04/24 04:37 04/04/24 04:37 Narrative: GENERAL APPEARANCE:? normal affect, alert, no distress MOOD:? appropriate CHEST:? clear to auscultation HEART:? regular rate and rhythm ABDOMEN:? soft, non-tender the uterine fundus is At Umbilicus, Midline and is appropriate for the stage of recovery. EXTREMITIES:? normal and no edema INCISION: Dressing intact; clean and dry; to be removed this am OB - PN: Obj Data Labs Labs: Laboratory Results - last 24 hr 04/03/24 04/03/24 04/04/24 08:14 09:32 06:31 WBC 8.22 RBC 4.20 Hgb 12.1 10.3 L Hct 37.2 MCV 89 MCH 29 MCHC 33 Plt Count 236 BUN 7 Creatinine 0.5 Estimated Creat Clear 170.37 Estimated GFR 129 AST 16 ALT 11 Urine Creatinine 57.4 Protein/Creatinin Ratio 0.17 Urine Total Protein 10 Blood Type O Positive Antibody Screen NEGATIVE OB - PN: A/P Delivery Assessment and Plan (1) care and examination immediately after delivery: Status: Acute (2) Gestational hypertension: Status: Acute (3) Lactating mother: Status: Acute Plan day: 1 Plan: routine care Comments: plan: , may see if needed Hgb 10.3. GHTN diagnosed by elevated BP greater than 4 hours apart Labs WNL Continue to monitor BP Anticipate discharge home tomorrow
[2024-04-04] MEDS: MEASLES,MUMPS,RUBELLA VACC/PF 1 DOSE INJ 1 EACH SUBCUT (08:59)
--- NOTE | 2024-04-04 13:13 | PM.ANPOST ---
Post Anesthesia Note Post Anesthesia Note Patient seen: Inpatient Respiratory Status: adequate Cardiovascular Status: adequate Mental Status: baseline Pain: adequate Temp: baseline Anesthetic awareness: N/A Complications: none Follow care: none
[2024-04-05 05:32] VITALS: BP 92/46; PULSE 82; RESP 16; TEMP 36.4; O2SAT 98
--- NOTE | 2024-04-05 07:18 | P.DS_ITS ---
DS: Providers Provider Date Seen: 04/05/24 Date of admission: 04/03/24 07:53 Primary care physician: Not a Local Provider Admitting Clinician: Kristi Randolph MD Attending Physician on discharge: Tray [employer] Date of Discharge: 04/05/24 DS: Diagnosis Discharge Diagnosis (1) Lactating mother: Status: Acute (2) care and examination immediately after delivery: Status: Acute (3) Gestational hypertension: Status: Acute (4) (normal spontaneous vaginal delivery): Status: Acute Exam Narrative: Exam Narrative: GENERAL APPEARANCE:? normal affect, alert, no distress MOOD:? appropriate CHEST:? clear to auscultation HEART:? regular rate and rhythm ABDOMEN:? soft, non-tender the uterine fundus is At Umbilicus, Midline and is appropriate for the stage of recovery. EXTREMITIES:? normal and minimal edema Const: Vital Signs, click to edit/add: Vital Signs - 24 hr 04/04/24 07:42 04/04/24 11:03 04/04/24 12:51 Temperature 97.8 F 98.3 F Pulse Rate [Pulse Oximeter] 67 82 Respiratory Rate 16 15 Blood Pressure [Le ft Arm] 113/75 93/55 L 96/62 Pulse Oximetry 97 97 Oxygen Delivery Me thod Room Air Room Air 04/04/24 16:38 04/04/24 20:00 04/04/24 23:45 Temperature 97.4 F L 98.4 F 98.0 F Pulse Rate [Pulse Oximeter] 81 88 85 Respiratory Rate 16 16 16 Blood Pressure [Le ft Arm] 100/64 111/77 119/79 Pulse Oximetry 97 97 97 Oxygen Delivery Me thod Room Air Room Air Room Air 04/05/24 05:32 Temperature 97.6 F Pulse Rate [Pulse Oximeter] 82 Respiratory Rate 16 Blood Pressure [Le ft Arm] 92/46 L Pulse Oximetry 98 Oxygen Delivery Me thod Room Air OB - DS: Summary Hospital Course Hospital Course: Meryl is a 29 y.o. G 5 P 3023 who was admitted to L & D for IOL for GHTN.? She had a NVD that was uncomplicated. The patient feels well.? The pain is well controlled with current medications.? She has no new complaints.? She is breast feeding and reports things are going well. the patient has done well.? Vitals have been stable.?She has remained with normal to low BP. She has remained afebrile.? Has a good appetite, is tolerating a general diet.? She is voiding without difficulty.? She is passing gas and has not had a bowel movement.? She is ambulating and denies any dizziness.? Has small amount of rubra lochia. She is planning an IUD for prevention.?She is unsure of which type she prefers. ?? Problems: none? Discharge home with baby.? Follow up in clinic at 2 weeks and 6 weeks.? , may see if needed? Hgb 10.3. ? GHTN diagnosed by elevated BP greater than 4 hours apart? Labs WNL or stable with trending? Discharge home with BP cuff if does not already have one? Follow up Monday for a BP check Call for signs/symptoms of preeclampsia? Peripartum Data delivery method: Vaginal Laceration description: None Episiotomy description: None complications: none [place] Gender: Male Discharge Plan: Home Status at Discharge Overall status at discharge: patient is progressing back to baseline Time Spent with Patient Time attestation: Total time spent providing and/or coordinating discharge services: Time spent: Less than 30 minutes Discharge Plan Discharge Disposition: Home, Self-Care Date of Admission: 04/03/24 07:53 Attending Provider on Discharge: Karin Valadez Primary Care Provider: Provider,Not a Local Condition: Stable Anticipated Discharge Date/Time: 04/05/24 Discharge Medications: New docusate sodium 100 mg Capsule 100 mg PO DAILY Qty: 60 0RF Continued DHA 200 mg capsule 200 mg PO DAILY Discharge Orders: Discharge Order (Routine); Ordered 04/05/24 Ordered By: Karin Valadez Patient Education: OB [place] [facility], OB Vaginal/Breast Feeding Additional Instructions: Discharge instructions were reviewed with the patient including signs and symptoms of infection and home going medications Nothing vaginally for 6 weeks: no tampons or intercourse Do not drive while taking narcotic pain medication(s) Off Work or School for 6 weeks Symptoms to report to doctor: * Bleeding that saturates more than one pad per hour * Passing clots larger than the size of a golf ball * Pain not relieved by prescribed medication * Fever above 100.4 degrees Fahrenheit * A foul vaginal odor * Difficulty in emotions, mood, and functions * Thoughts of hurting yourself and/or * Painful, reddened area in your breast * Any drainage, redness, or tenderness in your IV/epidural site * Severe headache that doesn't improve after taking medications * Changes in vision, including temporary loss of vision, blurred vision, and/or light sensitivity * Upper abdominal pain (usually under ribs on the right side) * Decrease in urination or painful, frequent urinating * Chest pain * Shortness of breath * Tenderness or pain with redness and/swelling in the calf(s) of your leg Follow [facility] for a BP check?04/08/2024 Call with BP greater than or equal to 160/110 2-week visit: discuss infant feeding concerns, review control options and screen for anxiety/depression. 6-week visit for an annual exam. consultation services are available to all mothers and babies for the first year after delivery.? To make an appointment, please call [phone]. For pain control of perineum, breast and pelvic pain, take 600 mg Ibuprofen every 6 hours as needed by mouth or 1000 mg acetaminophen (Tylenol) every 6 hours by mouth as needed. You can alternate these so you are taking something every 3 hours as needed. A heating pad can also be used for your abdomen or breasts. You may take a stool softener up to twice daily as needed until stools return to normal. ? Activity Level: Activity as Tolerated and No strenuous activity Discharge Diet: Regular Follow Up Appointments: [facility] [Provider Group] Forms: MyHealth Info Instructions
[2024-04-05 08:00] VITALS: BP 101/60; PULSE 68; RESP 16; TEMP 36.7; O2SAT 98
[2024-04-05 15:45] LABS: Rapid Plasma Reagin (RPR) Non Reactive (Non Reactive)
== END 2024-04-05 09:02 | disposition home or self-care (01) | DRG 560 ==
LOC: OB OUT 07:53 → OB 07:54
PROVIDERS: Admitting Provider Obstetrics & Gynecology; Visit Provider Obstetrics & Gynecology
DX: O13.4 Gestational [pregnancy-induced] hypertension without significant proteinuria, complicating childbirth (principal); Z37.0 Single live birth; Z3A.38 38 weeks gestation of pregnancy
CPT/HCPCS: 01967; 36415; 59200; 82565; 82570; 84156; 84450; 84460; 84520; 85018; 85027; 86592; 86850; 86900; 86901; 88307; A9270; J0290; J0665; J2371; J2795; J7120

== ENCOUNTER 2024-05-15 11:46 | Outpatient (CLI) | payer BC, SELFPAY ==
[2024-05-15 23:46] LABS: Chlamydia DNA Amplified* NOT DETECTED (No Detected); GC DNA Amplified* NOT DETECTED (No Detected)
== END 2024-05-15 11:47 | disposition home or self-care (01) ==
LOC: NFLDREF 11:47
PROVIDERS: Visit Provider Registered Nurse
DX: Z11.3 Encounter for screening for infections with a predominantly sexual mode of transmission (principal)
CPT/HCPCS: 87491; 87591